=== PATIENT | female | born 1970 | race Caucasian/White ===

== ENCOUNTER → 2017-01-16 | Outpatient (CLI) | payer BC | LOC: FIMAGING 07:51 | DX: Z12.31 Encounter for screening mammogram for malignant neoplasm of breast (principal) | CPT/HCPCS: G0202 ==

== ENCOUNTER 2017-01-28 06:28 | Day surgery (SDC) | payer BC ==
[2017-01-28] MEDS ORDERED: SILVER NITRATE APPLICATOR 1 APPL TP ONE (07:13)
[2017-01-28] MEDS ORDERED: MIDAZOLAM 2 MG/2 ML VIAL ONE (07:57)
[2017-01-28] MEDS ORDERED: PROPOFOL/EMULSION 500 MG/50 ML BOTTLE IV ONE (08:05)
[2017-01-28] MEDS ORDERED: KETOROLAC 30 MG/1 ML SDV ONE (08:06)
[2017-01-28] MEDS ORDERED: LIDOCAINE 2% 5 ML SDV ONE (08:07)
[2017-01-28] MEDS ORDERED: ONDANSETRON 4 MG/2 ML VIAL ONE (08:07)
[2017-01-28] MEDS ORDERED: DEXAMETHASONE 4 MG/ML VIAL ONE (08:07)
[2017-01-28] MEDS ORDERED: fentaNYL 100 MCG/2 ML INJ ONE ×3 (08:07→09:41)
[2017-01-28] MEDS ORDERED: PROMETHAZINE HCL 25 MG/ML INJ ONE (10:18)
--- NOTE | 2017-01-28 12:01 | GOP ---
DATE OF OPERATION: 01/28/2017 SURGEON: Arlene Scales MD ANESTHESIA: General with LMA. ANESTHESIOLOGIST: Alejandro Robles M.D. PREOPERATIVE DIAGNOSIS: 1. Abnormal uterine bleeding. 2. Symptomatic fibroid. POSTOPERATIVE DIAGNOSIS: 1. Abnormal uterine bleeding. 2. Symptomatic fibroid. PROCEDURE PERFORMED: 1. Hysteroscopic myomectomy. 2. D and C. FINDINGS: A moderate-sized posterior fundal attached fibroid. Otherwise, there is a small septum i n the uterus and normal tubal ostia. ESTIMATED BLOOD LOSS: Is about 50 cc. INDICATIONS: The patient is a 46-year-old who has been on long-term control pills, which have controlled her menstrual cycles very well. She noted about 6 months ago to have heavier bleeding a nd worse cramps during her menstrual cycle, as well as midcycle spotting. Ultrasound and sonohyster ogram done, and these showed multiple intramural and subserosal fibroids, but also a 2 cm submucosal fibroid on the posterior aspect of the fundus. The patient desires definitive treatment. I have o ffered her NovaSure ablation and she declines, so will go ahead with hysteroscopic myomectomy only. DESCRIPTION OF PROCEDURE: With informed consent signed, the patient was taken to the room and place d under general anesthesia, placed in the low dorsal lithotomy position and prepped and draped in th e usual sterile fashion. Tenaculum placed on the anterior lip of the cervix. Cervix dilated to 9.5 mm. Hysteroscope placed using normal saline as a filling medium. The [employer] morcellator placed into the hysteroscope and resection done of the fibroid. This was quite time consuming, as it was a fairly d ense fibroid and moderate-sized. Total resection time was about 30 minutes and I did switch out the blade to increase the timeframe of resection. Once it was felt that the fibroid was completely removed, the hysteroscope was removed and hemostasi s was noted. The patient was placed in the supine position, awaken in the operating room and taken to the recovery room in stable condition having tolerated the procedure well. Net fluid deficit was approximately 400 mL. COMPLICATIONS: None. /[id number]/MODL
== END 2017-01-28 11:15 | disposition home or self-care (01) ==
LOC: FSGY 06:28
PROVIDERS: ATTEND Obstetrics & Gynecology Gynecology
PROC: 0UB98ZZ Excision of Uterus, Via Natural or Artificial Opening Endoscopic (ICD-10-PCS; principal; 2017-01-28 08:00)
DX: D25.9 Leiomyoma of uterus, unspecified (principal); N92.0 Excessive and frequent menstruation with regular cycle
CPT/HCPCS: 58561; C1782; J1100; J1885; J2250; J2405; J2550; J2704; J3010

== ENCOUNTER → 2018-01-30 | Outpatient (CLI) | payer OTHER | LOC: FIMAGING 08:01 | PROVIDERS: ATTEND Obstetrics & Gynecology Gynecology | DX: Z12.31 Encounter for screening mammogram for malignant neoplasm of breast (principal) ==

== ENCOUNTER → 2019-02-08 | Outpatient (CLI) | payer OTHER | LOC: FIMAGING 08:22 | PROVIDERS: ATTEND Obstetrics & Gynecology Gynecology | DX: Z12.31 Encounter for screening mammogram for malignant neoplasm of breast (principal) ==